=== PATIENT | female | born 1990 | race Caucasian/White ===

== ENCOUNTER 2024-07-29 12:54 | Outpatient (CLI) | payer BC | END 2024-07-29 12:55 | disposition home or self-care (01) | LOC: CSHDTY/OP 12:54 | PROVIDERS: ATTEND Nurse Practitioner Family | DX: E66.09 Other obesity due to excess calories (principal) | CPT/HCPCS: 97802 ==

== ENCOUNTER 2024-09-09 14:57 | Outpatient (CLI) | payer BC | END 2024-09-09 14:58 | disposition home or self-care (01) | LOC: CSHDTY/OP 14:57 | PROVIDERS: ATTEND Nurse Practitioner Family | DX: E66.09 Other obesity due to excess calories (principal) | CPT/HCPCS: 97802 ==